=== PATIENT | female | born 1955 | race Caucasian/White ===

== ENCOUNTER 2025-01-05 23:01 | Observation (INO) | payer OTHER, SELFPAY ==
[2025-01-05 23:10] VITALS: BP 141/64; PULSE 73; O2SAT 97
[2025-01-05 23:13] VITALS: BP 141/64; PULSE 73; RESP 20; TEMP 36.7; O2SAT 98; BMI 30.9
--- NOTE | 2025-01-05 23:15 | ED.NAVMDI ---
HPI - Nausea/Vomiting/Diarrhea General Chief complaint: Nausea/Vomiting/Diarrhea Stated complaint: Nausea, Vomiting, Hot Flashes Time Seen by Provider: 01/05/25 23:13 Source: patient, RN notes reviewed and old records reviewed Mode of arrival: Ambulatory Limitations: no limitations History of Present Illness HPI Narrative: 69-year-old female history of GERD, patient presents with complaint of nausea or vomiting but also headache she states they started about the same time. She states it was sort of a gradual onset and not a thunderclap or sudden onset. She states it is not the worst headache of her life but it was fairly intense. She states she was had vomiting since that is when pretty frequent starting about 9:00 this evening. She states she was sitting up in her bed after 1 of these episodes saw some black spots and did pass out for a short appeared of time. Patient states she was does not normally pass out. She denies any chest pain or shortness of breath. She states her headaches actually improving. She denies any abdominal back or flank pain. No loss of bowel or bladder control. Denies any diarrhea, no black or bloody stools. No dysuria urgency or frequency. No new numbness tingling or weakness or extremities. Denies any fevers or chills. No nasal congestion. Patient states she takes omeprazole daily no other daily prescription medications has had prior cholecystectomy. Reports allergy did not naproxen which makes her vomit but states she can take ibuprofen without issue. Denies any tobacco, alcohol or recreational drugs. Does not currently have a primary care physician. Patient also notes she had contact with the individual yesterday who was positive for norovirus. Related Data Allergies Allergy/AdvReac Type Severity Reaction Status Date / Time naproxen Allergy Vomiting Verified 01/05/25 23:18 Review of Systems Review of Systems ROS Unobtainable: All systems reviewed & are unremarkable except as noted in HPI and below Patient History Social History Smoking Status: Never smoker Smoking Status: Never smoker Exam Narrative Exam Narrative: GEN: well nourished, well appearing female, alert and oriented x 3, patient appears to be in my distress. HEENT: Atraumatic, pupils are equal round reactive to light, extraocular movements are intact, no nystagmus, nares are clear, TMs are clear with no fluid, there is no conjunctival pallor. Throat is clear without any exudates, erythema, tonsillar enlargement or uvular deviation, facial droop. No meningeal signs. HEART: Regular rate and rhythm without murmur, clicks, rubs. LUNGS:Lungs clear to auscultation, no wheezes, rales, crackles, chest moves symmetrically ABD:bowel sounds normal, soft, non-tender, no guarding, rebound, rigidity, no masses noted, no hepatosplenomegaly :No CVA tenderness MSCL: Non-tender, no muscle atrophy, muscles strength 5/5 upper and lower extremities, full range of motion, normal gait NEURO:CN 2-12 intact, sensation normal. Initial Vital Signs Initial Vital Signs: Vital Signs Pulse Rate 73 01/05/25 23:10 Blood Pressure 141/64 H 01/05/25 23:10 Pulse Oximetry 97 01/05/25 23:10 Course Orders Ordered: ED Orders 01/05/25 23:20 Complete Blood Count AUTO DIFF Stat Comprehensive Metabolic Panel Stat Lipase Stat Troponin & CK Cardiac Panel Stat Urine Culture Stat Urine Microscopic Stat 01/05/25 23:37 CT angio head and neck Stat CT head/brain wo con Stat XR chest 1V Stat EKG-12 Lead Stat 01/06/25 00:37 US abdomen limited Stat Acetaminophen (Acetaminophen 325 Mg Tablet) 650 mg PO Q6H PRN PRN Reason: Fever/Mild Pain (1-3) Heparin Sodium (Porcine) (Heparin 5,000 Unit/Ml Vial) 5,000 unit SUBCUT BID MAYLIN Hydromorphone HCl (Hydromorphone 0.5 Mg Inj) 0.5 mg IV Q2H PRN PRN Reason: Pain, Severe (7-10) Sodium Chloride (Normal Saline 0.9%) 1,000 mls @ 125 mls/hr IV CONT MAYLIN Naloxone HCl (Naloxone 0.4 Mg/Ml Vial) 0.2 mg IV Q2MIN PRN PRN Reason: Opiate Reversal Ondansetron HCl (Ondansetron 4 Mg/2 Ml Inj) 4 mg IV NOW PRN PRN Reason: Nausea And Vomiting Last Admin: 01/05/25 23:20 Dose: 4 mg Documented By: KATERINA Ondansetron HCl (Ondansetron 4 Mg Odt) 4 mg PO NOW PRN PRN Reason: Nausea And Vomiting Discontinued Medications Sodium Chloride (Normal Saline 0.9%) 1,000 mls @ 1,000 mls/hr IV BOLUS ONE Stop: 01/06/25 00:36 Last Infusion: 01/06/25 00:53 Dose: Infused Documented By: Admin: 01/05/25 23:44 Dose: 1,000 mls/hr Documented By: KATERINA Ondansetron HCl (Ondansetron 4 Mg/2 Ml Inj) 4 mg IV NOW ONE Stop: 01/06/25 01:58 Last Admin: 01/06/25 02:05 Dose: 4 mg Documented By: NITISH Vital Signs Vital signs: Vital Signs - 8 hr 01/05/25 23:10 01/05/25 23:10 01/05/25 23:13 Temperature 98.1 F Pulse Rate 73 73 Respiratory Rate 20 Blood Pressure 141/64 H 141/64 H Pulse Oximetry 97 98 Oxygen Delivery Method Room Air 01/05/25 23:30 01/05/25 23:30 01/06/25 00:03 Temperature Pulse Rate 84 Respiratory Rate Blood Pressure 120/63 128/56 L Pulse Oximetry 95 Oxygen Delivery Method 01/06/25 00:03 01/06/25 00:30 01/06/25 00:30 Temperature Pulse Rate 80 79 Respiratory Rate 22 Blood Pressure 139/63 Pulse Oximetry 97 97 Oxygen Delivery Method 01/06/25 01:00 01/06/25 01:00 01/06/25 01:30 Temperature Pulse Rate 79 80 Respiratory Rate 23 20 Blood Pressure 131/60 Pulse Oximetry 99 99 Oxygen Delivery Method 01/06/25 01:30 01/06/25 02:00 01/06/25 02:01 Temperature Pulse Rate 41 L 43 L Respiratory Rate 14 18 Blood Pressure 123/60 Pulse Oximetry 97 96 Oxygen Delivery Method 01/06/25 02:01 01/06/25 02:30 01/06/25 02:30 Temperature Pulse Rate 75 Respiratory Rate 19 Blood Pressure 98/54 L 132/60 Pulse Oximetry 97 Oxygen Delivery Method Room Air MDM - Nausea/Vomiting/Diarrhea Lab Data 01/05/25 23:20 01/05/25 23:20 Labs: Lab Results 01/05/25 Range/Units 23:20 WBC 13.4 H (4.5-11.0) X10^3/uL RBC 5.09 (4.0-5.2) X10^6/uL Hgb 14.6 (12.0-16.0) g/dL Hct 43.1 (36-46) % MCV 84.6 (80-100) fL MCH 28.8 (26-34) PG MCHC 34.0 (30-36) % RDW 14.7 (11.6-14.8) % Plt Count 270 (150-400) X10^3/uL Neut % (Auto) 79.9 H (50-75) % Lymph % (Auto) 13.3 L (25-40) % [place] % (Auto) 5.3 (3-14) % Eos % (Auto) 1.2 L (2-4) % Baso % (Auto) 0.3 (0-2) % Neut # (Auto) 39523 H (2096-7542) /uL Lymph # (Auto) 1800 (8225-6953) /uL [place] # (Auto) 700 (0-900) /uL Eos # (Auto) 200 (0-450) /uL Baso # (Auto) 0 (0-100) /uL Sodium 136 L (137-145) mmol/L Potassium 4.4 (3.4-5.1) mmol/L Chloride 99 (98-107) mmol/L Carbon Dioxide 28 (22-32) mmol/L BUN 20 H (7-17) mg/dL Creatinine 1.10 H (0.52-1.04) mg/dL Estimated GFR 54 L (>60) mL/min BUN/Creatinine Ratio 18.2 (6-22) Glucose 153 H (70-99) mg/dL Calcium 9.5 (8.4-10.2) mg/dL Total Bilirubin 0.7 (0.2-1.3) mg/dL AST 37 H (14-36) IU/L ALT 34 (<35) IU/L Alkaline Phosphatase 80 (38-126) U/L Total Creatine Kinase 81 (30-135) U/L Troponin I < 0.012 (0.01-0.034) ng/mL Total Protein 8.2 (6.3-8.2) g/dL Albumin 4.5 (3.5-5.0) g/dL Globulin 3.7 (1.7-4.1) g/dL Albumin/Globulin Ratio 1.2 (1.0-2.8) Lipase 5548 H (23-300) U/L Urine RBC 0-1/hpf (0-5/HPF) Urine WBC 0-1/hpf (0-5/HPF) Ur Squamous Epith Cells 0-1 /hpf (0-5/HPF) Urine Bacteria Occasional (0-1) (None) Ur Culture Indicated? Specimen cultured Vol Urine Centrifuged 10ml (spun) Urine Dip Bedside Urine Glucose Negative Bedside Urine Bilirubin - Negative Bedside Urine Ketone - Negative Urine Specific [place] 1.015 Bedside Urine Occult Blood + Bedside Urine pH 6.0 Bedside Urine Protein - Negative Bedside Urine Urobilinogen - Negative Bedside Urine Nitrite - Negative Bedside Urine Leukocytes + 70 Esterase MDM Narrative Medical decision making narrative: 69-year-old female presents with complaint of nausea or vomiting that started about the same time as headache but she was unsure which preceded the other does describe a headache which she describes as severe but not the worse headache of her life. Describes it more as a gradual onset over the day in his actually improving at this time. She has been afebrile. Did not note that she passed out after she had vomited a lot. She also notes she had contact with the individual had Norovirus yesterday. Suspect this maybe norovirus but based on patient's constellation of symptoms head CT CT angio was also included and workup. She was no acute neurologic changes on exam. She feels much better after dose of Zofran here in the department. Labs show white count of 13 hemoglobin of 14 platelets of 270, chemistry shows sodium 136 potassium chloride CO2 were normal BUN 20 creatinine is 1.10, glucose is 153 bilirubin is 0.7 with a AST of 37 ALT of 34 alk-phos 80 lipase is 5548. Troponin less than 0.012 Point of care urine shows blood. Leukocyte esterase. One red cell 1 white cell 1 squamous occasional bacteria sent for culture. CT head noncontrast shows no acute change CT angio no significant intracranial abnormality of the head or neck, consider brain follow up MRI, Right thyroid goiter. Chest x-ray shows no acute change. Right upper quadrant ultrasound increased hepatic echogenicity consistent with a panic steatosis other forms of hepatocellular disease could have similar appearance. No free fluid identified. Intra and extrahepatic bile ducts are nondilated. Patient received Zofran and fluids. Patient is feeling improved currently asymptomatic, denies any pain. No prior history of pancreatitis. Spoke with Dr. Townsend telehospitalist accepts for inpatient. Discharge Plan Departure Patient Disposition: Admitted As Inpatient Clinical Impression: Pancreatitis, Vomiting Referrals: Bill Garcia MD [Primary Care Provider] -
[2025-01-05] MEDS: ONDANSETRON 4 MG/2 ML INJ IV (23:20)
[2025-01-05 23:30] VITALS: BP 120/63; PULSE 84; O2SAT 95
--- NOTE | 2025-01-05 23:37 | DI.RAD.S_ITS ---
PROCEDURE: XR CHEST 1V INDICATIONS: syncope, maher, vomiting TECHNIQUE: One view of the chest was acquired. COMPARISON: None. FINDINGS: Surgical changes and devices: None. Lungs and pleura: Lungs appear clear. No pleural effusions or pneumothorax. Mediastinum: Mediastinal contours appear normal. Heart size is within normal limits. Bones and chest wall: No suspicious bony lesions. Overlying soft tissues appear unremarkable. IMPRESSION: No acute cardiopulmonary abnormality is seen. Dictated by: Ivan Mendez M.D. on 01/06/2025 at 2:15 Approved by: Ivan Mendez M.D. on 01/06/2025 at 2:17
--- NOTE | 2025-01-05 23:37 | DI.CT.S_ITS ---
PROCEDURE: CT ANGIO HEAD AND NECK INDICATIONS: maher, vomiting, syncope TECHNIQUE: After the administration of intravenous contrast, 1 mm thick sections acquired from the aortic arch through the [place]. 3-dimensional rytkefl-xzyuwtxva-ayodbnpfix (MIP) and/or volume rendering reformats were acquired of the central intracranial vasculature and neck separately. For radiation dose reduction, the following was used: automated exposure control, adjustment of mA and/or kV according to patient size. COMPARISON: [facility], CT, CT HEAD/BRAIN WO CON, 01/05/2025, 23:51. FINDINGS: Image quality: Diagnostic. BRAIN: CSF spaces: Ventricles are normal in size and shape. Basal cisterns are patent. No extra-axial fluid collections. Brain: No significant abnormality of the brain can be seen. Skull and face: Calvarium and facial bones appear intact, without suspicious lesions. Orbits appear normal. Sinuses: Sinuses and mastoids are clear. HEAD CT ANGIOGRAPHY: Anterior circulation: Intracranial internal carotid arteries are normal in size and flow. The flow within the paired anterior cerebral arteries is normal and symmetric. The flow within the middle cerebral arteries is normal and symmetric. The anterior communicating artery is seen. No aneurysms are seen. Posterior circulation: Visualized portions of the vertebral arteries demonstrate normal caliber, and join to form a normal appearing basilar artery. Flow within the posterior cerebral arteries is normal and symmetric. No aneurysms are seen. NECK CT ANGIOGRAPHY: Carotid system: The great vessels demonstrate a conventional anatomy as they arise from the aortic arch. The origins of the common carotid arteries appear patent. The common carotid arteries demonstrate normal caliber and courses. The bifurcation regions are both widely patent. Mild calcified plaque at the right carotid bulb. Less than 50% stenosis bilaterally. The internal carotid arteries demonstrate normal calibers and courses. Posterior circulation: The origins of the vertebral arteries both appear widely patent. The more superior extracranial portions of both vertebral arteries also demonstrate normal courses and calibers. They join to form a normal appearing basilar artery. Soft tissues: Visualized neck soft tissues demonstrate no suspicious abnormalities. Right thyroid goiter. Left thyroid calcification. Bones: No suspicious bony lesions. Ihrw-mu-[id number] degenerative changes. Visualized cervical spine appears normally aligned. IMPRESSION: No significant intracranial arterial abnormality is seen. No significant abnormality is seen within the arteries of the neck. Consider follow-up brain MRI. Right thyroid goiter. Any quantitative measurements of stenosis were performed using NASCET criteria. Dictated by: Ivan Mendez M.D. on 01/06/2025 at 1:47 Approved by: Ivan Mendez M.D. on 01/06/2025 at 1:53
--- NOTE | 2025-01-05 23:37 | DI.CT.S_ITS ---
PROCEDURE: CT HEAD/BRAIN WO CON INDICATIONS: maher/vomiting/syncope, also had recent norovirus exposure TECHNIQUE: Noncontrast 4.5 mm thick angled axial sections acquired from the foramen magnum to the vertex, with coronal and sagittal reformats. For radiation dose reduction, the following was used: automated exposure control, adjustment of mA and/or kV according to patient size. COMPARISON: None. FINDINGS: Image quality: Diagnostic. CSF spaces: Basal cisterns are patent. No extra-axial fluid collections. Ventricles are normal in size and shape. Brain: No midline shift. No intracranial mass effect or hemorrhage. [place]-white matter interface is normal. Skull and face: Calvarium and visualized facial bones are intact, without suspicious lesions. Sinuses: Visualized sinuses and mastoids are clear. IMPRESSION: No acute intracranial pathology. Dictated by: Ivan Mendez M.D. on 01/06/2025 at 1:46 Approved by: Ivan Mendez M.D. on 01/06/2025 at 1:47
[2025-01-05 23:40] LABS: Bacteria Urine Occasional (0-1); Culture Indicated Urine Specimen Cultured; RBC Urine 0-1/HPF (0-5/HPF); Squamous Epithelial Cell Urine 0-1 /HPF (0-5/HPF); Urine Volume 10mL (spun); WBC Urine 0-1/HPF (0-5/HPF)
[2025-01-05 23:43] LABS: Add Manual Diff / Slide Review NO; Basophils Absolute Auto 0 /uL (0-100); Basophils Percent Auto 0.3 % (0-2); Eosinophils Absolute Auto 200 /uL (0-450); Eosinophils Percent Auto 1.2 % (2-4); Hematocrit 43.1 % (36-46); Hemoglobin 14.6 g/dL (12.0-16.0); Lymphocytes Absolute Auto 1800 /uL (1100-4500); Lymphocytes Percent Auto 13.3 % (25-40); Mean Corpuscular Hemoglobin 28.8 PG (26-34); Mean Corpuscular Volume 84.6 fL (80-100); Monocytes Absolute Auto 700 /uL (0-900); Monocytes Percent Auto 5.3 % (3-14); Neutrophils Absolute Auto 10700 /uL (1500-7000); Neutrophils Percent Auto 79.9 % (50-75); Platelet Count 270 X10^3/uL (150-400); Red Blood Cell Count 5.09 X10^6/uL (4.0-5.2); Red Cell Distribution Width 14.7 % (11.6-14.8); White Blood Cell Count 13.4 X10^3/uL (4.5-11.0)
[2025-01-05] MEDS: SODIUM CHLORIDE 0.9% 1,000 ML 1000 ML IV (23:44)
--- NOTE | 2025-01-05 23:52 | PC.NURSE ---
Pt to imaging via ED stretcher with special procedure technologist
[2025-01-06] VITALS (9 sets, daily range): BP systolic 98–139; BP diastolic 54–69; PULSE 41–87; RESP 14–23; TEMP 36.2–36.4; O2SAT 95–100; BMI 31.8
[2025-01-06 00:03] LABS: Alanine Aminotransferase 34 IU/L (<35); Albumin 4.5 g/dL (3.5-5.0); Albumin Globulin Ratio 1.2 (1.0-2.8); Alkaline Phosphatase 80 U/L (38-126); Aspartate Aminotransferase 37 IU/L (14-36); BUN Creatinine Ratio 18.2 (6-22); Bilirubin Total 0.7 mg/dL (0.2-1.3); Blood Urea Nitrogen 20 mg/dL (7-17); Calcium 9.5 mg/dL (8.4-10.2); Carbon Dioxide 28 mmol/L (22-32); Chloride 99 mmol/L (98-107); Creatine Kinase 81 U/L (30-135); Estimated Glomerular Filt Rate 54 mL/min (>60); Globulin 3.7 g/dL (1.7-4.1); Glucose 153 mg/dL (70-99); HEMOLYSIS < 15 (0-50); Potassium 4.4 mmol/L (3.4-5.1); Sodium 136 mmol/L (137-145); Total Protein 8.2 g/dL (6.3-8.2)
[2025-01-06 00:14] LABS: Troponin I < 0.012 ng/mL (0.01-0.034)
[2025-01-06 00:29] LABS: Lipase 5548 U/L (23-300)
--- NOTE | 2025-01-06 00:37 | DI.US.S_ITS ---
PROCEDURE: US ABDOMEN LIMITED INDICATIONS: RUQ, pancreatitis TECHNIQUE: Real-time scanning was performed of the abdominal and retroperitoneal organs, with image documentation. COMPARISON: None. FINDINGS: Liver: Measures 14.6 cm. Increased in echogenicity. Decreased sonographic penetration. Gallbladder: Absent. Biliary ducts: Intrahepatic bile ducts are non-dilated. Extrahepatic bile duct caliber measures 5 mm. Normal is 6-7 mm or less in diameter, or 10 mm or less post-cholecystectomy. Pancreas: Visualized portions of the pancreas are sonographically normal. Miscellaneous: No free abdominal fluid. IMPRESSION: 1. Increased hepatic echogenicity most consistent with hepatic steatosis. Other forms of hepatocellular disease could have similar appearance. 2. No free fluid is identified. -Recommend correlation with serum lipase. If clinically indicated CT abdomen pelvis with IV contrast could be considered for further evaluation. Dictated by: Ivan Mendez M.D. on 01/06/2025 at 3:00 Approved by: Ivan Mendez M.D. on 01/06/2025 at 3:02
[2025-01-06] MEDS: ONDANSETRON 4 MG/2 ML INJ IV ×2 (02:05→08:31)
[2025-01-06] MEDS: SODIUM CHLORIDE 0.9% 1,000 ML 125 ML IV (03:00)
--- NOTE | 2025-01-06 05:11 | PM.HP.1 ---
History of Present Illness History of Present Illness Chief complaint: Nausea, Vomiting, Hot Flashes Narrative: 69-year-old female with past medical history of GERD, cholecystectomy, and on hormonal replacement therapy with estrogen presents with complaint of headache with nausea and vomiting. Per the patient's report, the patient started to have nausea and vomiting that started this evening. The patient states that her headache is gradual in onset but is moderate to severe. The patient however denies any vision changes, slurred speech, facial drooping or focal weakness. The patient also have nausea and vomiting but denies any fever, chills, chest pain or shortness of breath. Patient denies any history of alcohol abuse. In our emergency room, the patient was hemodynamically stable. Labs shows a WBC of 13 BUN of 20 creatinine 1.1 glucose of 153 lipase of 5548. Bilirubin normal AST and ALT in the 30s. Troponin less than 0.12. CT of the head shows no acute finding. Chest x-ray negative UA is negative. Right upper quadrant abdominal ultrasound shows no signs of dilated bile duct or gallstone. Due to concern of acute pancreatitis our ER physician requested admission for IV fluid and p.o. and pain control. IV antiemetics. [facility] Social History household members: spouse Smoking Status: Never smoker alcohol intake: never Meds Home Medications and Allergies Home Medications Medication Instructions Recorded Confirmed Type esterified 1 tab PO DAILY 01/06/25 01/06/25 History estrogens-methyltestosterone 1.25 mg-2.5 mg tablet omeprazole 20 mg capsule,delayed 20 mg PO DAILY 01/06/25 01/06/25 History release Allergies Allergy/AdvReac Type Severity Reaction Status Date / Time naproxen Allergy Vomiting Verified 01/05/25 23:18 Review of Systems Review of Systems ROS: Yes All systems reviewed with the patient and are negative except as otherwise documented Exam Vital Signs (past 8 hours): - 01/05/25 23:10 01/05/25 23:10 01/05/25 23:13 Temperature 98.1 F Pulse Rate 73 73 Respiratory Rate 20 Blood Pressure 141/64 H 141/64 H Pulse Oximetry 97 98 Oxygen Delivery Method Room Air Oxygen Flow Rate 01/05/25 23:30 01/05/25 23:30 01/06/25 00:03 Temperature Pulse Rate 84 Respiratory Rate Blood Pressure 120/63 128/56 L Pulse Oximetry 95 Oxygen Delivery Method Oxygen Flow Rate 01/06/25 00:03 01/06/25 00:30 01/06/25 00:30 Temperature Pulse Rate 80 79 Respiratory Rate 22 Blood Pressure 139/63 Pulse Oximetry 97 97 Oxygen Delivery Method Oxygen Flow Rate 01/06/25 01:00 01/06/25 01:00 01/06/25 01:30 Temperature Pulse Rate 79 80 Respiratory Rate 23 20 Blood Pressure 131/60 Pulse Oximetry 99 99 Oxygen Delivery Method Oxygen Flow Rate 01/06/25 01:30 01/06/25 02:00 01/06/25 02:01 Temperature Pulse Rate 41 L 43 L Respiratory Rate 14 18 Blood Pressure 123/60 Pulse Oximetry 97 96 Oxygen Delivery Method Oxygen Flow Rate 01/06/25 02:01 01/06/25 02:30 01/06/25 02:30 Temperature Pulse Rate 75 Respiratory Rate 19 Blood Pressure 98/54 L 132/60 Pulse Oximetry 97 Oxygen Delivery Method Room Air Oxygen Flow Rate 01/06/25 02:50 Temperature 97.1 F L Pulse Rate 71 Respiratory Rate 19 Blood Pressure 132/69 Pulse Oximetry 100 Oxygen Delivery Method Oxygen Flow Rate 0 Oxygen Delivery Method Room Air Oxygen Flow Rate 0 Narrative Exam Narrative: Physical Exam: GENERAL: The patient is not in any acute distressed. Awake and alert. HEENT: Nonicteric sclerae, PERRLA, EOMI. Oropharynx clear. Moist mucous membranes. Conjunctivae appear well perfused. HEART: Regular rate and rhythm without murmurs. No lower extremities edema. LUNGS: Clear to auscultation bilaterally. No wheezing, crackles or rhonchi ABDOMEN: Soft, positive bowel sounds, nontender. SKIN: No rash, no excessive bruising, petechiae, or purpura. NEUROLOGIC: AxO x 3. Cranial nerves II-XII intact without motor/sensory deficit. Objective Labs 01/05/25 23:20 01/05/25 23:20 Labs: Laboratory Results - last 24 hr 01/05/25 23:20 WBC 13.4 H RBC 5.09 Hgb 14.6 Hct 43.1 MCV 84.6 MCH 28.8 MCHC 34.0 RDW 14.7 Plt Count 270 Neut % (Auto) 79.9 H Lymph % (Auto) 13.3 L [place] % (Auto) 5.3 Eos % (Auto) 1.2 L Baso % (Auto) 0.3 Neut # (Auto) 35922 H Lymph # (Auto) 1800 [place] # (Auto) 700 Eos # (Auto) 200 Baso # (Auto) 0 Sodium 136 L Potassium 4.4 Chloride 99 Carbon Dioxide 28 BUN 20 H Creatinine 1.10 H Estimated GFR 54 L BUN/Creatinine Ratio 18.2 Glucose 153 H Calcium 9.5 Total Bilirubin 0.7 AST 37 H ALT 34 Alkaline Phosphatase 80 Total Creatine Kinase 81 Troponin I < 0.012 Total Protein 8.2 Albumin 4.5 Globulin 3.7 Albumin/Globulin Ratio 1.2 Lipase 5548 H Urine RBC 0-1/hpf Urine WBC 0-1/hpf Ur Squamous Epith Cells 0-1 /hpf Urine Bacteria Occasional (0-1) Ur Culture Indicated? Specimen cultured Vol Urine Centrifuged 10ml (spun) Assessment & Plan Assessment & Plan narrative: Acute pancreatitis. Admit the patient to medical inpatient. NPO. IV fluid. IV antiemetics and pain control. Of note patient denies any history of alcohol use. Patient has a history of cholecystectomy. Right upper quadrant abdominal ultrasound shows no bile duct dilatation. Bilirubin normal with AST ALT in the 30s. Leukocytosis. Mild. No signs of infection. Chest x-ray and UA negative. Monitor for now. GERD resume PPI. On estrogen replacement therapy. Wants to pancreatitis improved consider resuming home statin hormone. DVT prophylaxis heparin subcu. CODE STATUS full code. Disposition likely home in 2 days. - As the provider of this telehealth evaluation, requested by the patient's evaluating physician, I attest that I introduced myself to the patient, provided my credentials and determined that telemedicine via a real-time, 2 way interactive audio and video platform is an appropriate and effective means of providing this service. - I reviewed the patient's chart and had a discussion with the member of the patient's treatment team. - The patient and I mutually agreed with continuation of this evaluation via telemedicine. The patient consented for the telemedicine evaluation. - This virtual encounter was taken place from [place] by Dr. Chevy Townsend. The patient was evaluated at [facility]. The encounter was approximately 35 minutes. The nurse was present during the entire time of the encounter and was able to move the stethoscope in appropriate directions. Time-Based Coding :: [TOTAL MINUTES] spent with patient and on the chart (including review of chart, obtaining history, exam, reviewing outside data, placing orders, documenting exam and treatment plan, and counseling patient) on [DATE]. Quality VTE Deep Vein Thrombosis/Pulmonary Embolism Present on Admission: No
[2025-01-06] MEDS: METOCLOPRAMIDE 10 MG/2 ML INJ IV (09:21)
--- NOTE | 2025-01-06 13:11 | CM.DANOTE ---
Initial DCP Assessment Note Pt is a 69 yo female, arrives w/complaint of headache with nausea and vomiting. Patient admitted OBS for management of acute pancreatitis-IV fluid and p.o. pain control. IV antiemetics. PCP: Bill Garcia Payer: Marcela BUENO Reviewed chart, pt discussed in multidisciplinary rounds this morning. Patient is discharged home today, tolerating a diet and eager to return home. Patient lives independently in an RV w/spouse. Patient is at her functional and cognitive baseline. No barriers identified at this time to patient's safe discharge home w/ close outpatient f/u recommended. CM team will plan to follow clinical course closely in case any DC needs or concerns arise. PHILLY Arzate Discharge Planning/Care Management CM Discharge Assessment Start: 01/06/25 03:09 Freq: Status: Active Protocol: Document 01/06/25 13:04 SHARON (Rec: 01/06/25 13:11 SHARON [id number]) Discharge Planning Assessment Assigned Human Resources Assistant Manager PHILLY Archer DPOA/Assigned Designee Name eleuterio Cunningham [phone] Advance Directives? No History Provided By Patient,Medical Record Has Patient been admitted in last 30 No days? Prior Living Arrangements RV Household Members spouse Type of transporation used prior to Drives own vehicle admit Independent with ADL's Yes Is patient alert and oriented? Yes Barriers to Discharge No Discharge Plan Home Transportation Arrangement Spouse Referrals Initiated None needed
--- NOTE | 2025-01-06 13:30 | PC.NURSE ---
Patient A&OX4, VSS, afebrile. She c/o of nausea this a.m. and reports prn medication effective, and no further emesis this a.m. She is eager to discharge home and she is ordered a low fat low residue diet for lunch. She is able to tolerate this well and is cleared for discharge home with prescription of zofran. She acknowledges discharge recommendations and plans to obtain a PCP in the near future. She is escorted by RN via w/ch to private vehicle with .
--- NOTE | 2025-01-07 18:53 | P.DS_ITS ---
History of Present Illness History of Present Illness Date Patient Seen: 01/06/25 Time Patient Seen: 14:00 Chief complaint: Nausea, Vomiting, Hot Flashes Narrative: Per admitting provider, 69-year-old female with past medical history of GERD, cholecystectomy, and on hormonal replacement therapy with estrogen presents with complaint of headache with nausea and vomiting. Per the patient's report, the patient started to have nausea and vomiting that started this evening. The patient states that her headache is gradual in onset but is moderate to severe. The patient however denies any vision changes, slurred speech, facial drooping or focal weakness. The patient also have nausea and vomiting but denies any fever, chills, chest pain or shortness of breath. Patient denies any history of alcohol abuse. In our emergency room, the patient was hemodynamically stable. Labs shows a WBC of 13 BUN of 20 creatinine 1.1 glucose of 153 lipase of 5548. Bilirubin normal AST and ALT in the 30s. Troponin less than 0.12. CT of the head shows no acute finding. Chest x-ray negative UA is negative. Right upper quadrant abdominal ultrasound shows no signs of dilated bile duct or gallstone. Due to concern of acute pancreatitis our ER physician requested admission for IV fluid and p.o. and pain control. IV antiemetics. Discharge Providers Provider Date of admission: 01/06/25 03:05 Discharge Date: 01/07/25 Primary care physician: Bill Garcia MD Discharge provider: Mu Brenner DO Summary Hospital Course Discharge Diagnosis: Intractable nausea and vomiting, present on admission, improved. Elevated Lipase, POA. Leukocytosis, POA GERD On estrogen replacement therapy, chronic. Hospital Course: This is a 69-year-old female with a past medical history of prior cholecystectomy, GERD, and chronic estrogen replacement therapy who was admitted with nausea, vomiting, headache and an elevated lipase concerning for possible pancreatitis. She did not report significant or typical abdominal pain, and only an abdominal ultrasound was performed which did not show any evidence of inflammation in the pancreas. Patient was initially NPO with IV fluids for possible pancreatitis, however the patient felt very well shortly after admission and her diet was quickly advanced. She was able to be discharged later that day, tolerating a diet without significant abdominal pain. She was subsequently discharge. Differentials for her presentation include an enteritis or atypical migraine. Her elevated lipase could be investigated further as an outpatient, but she currently did not meet diagnostic criteria for acute pancreatitis at this time. Recommend follow-up with her primary care provider as previously scheduled, unless symptoms recur at which point she can follow up as an outpatient as needed for further evaluation. Time Spent with Patient Time spent: Greater than 30 minutes Exam Vital Signs (past 8 hours): Oxygen Delivery Method Room Air Oxygen Flow Rate 0 Narrative Exam Narrative: Physical Exam: GENERAL: The patient is not in any acute distressed. Awake and alert. HEENT: Nonicteric sclerae, PERRLA, EOMI. Oropharynx clear. Moist mucous membranes. Conjunctivae appear well perfused. HEART: Regular rate and rhythm without murmurs. No lower extremities edema. LUNGS: Clear to auscultation bilaterally. No wheezing, crackles or rhonchi ABDOMEN: Soft, positive bowel sounds, nontender. SKIN: No rash, no excessive bruising, petechiae, or purpura. NEUROLOGIC: AxO x 3. Cranial nerves II-XII intact without motor/sensory deficit. Objective Labs 01/05/25 23:20 01/05/25 23:20 [facility] Social History household members: spouse Smoking Status: Never smoker alcohol intake: never Discharge Plan Discharge Plan Patient Disposition: Home Provider Discharge Comment: You were admitted to the hospital with nausea and vomiting, your lipase was elevated but it is not entirely clear if this was pancreatitis or not. There are rare reports of cases of pancreatitis due to omeprazole, consider switching back to famotidine. Otherwise continue symptom relief and advance diet at home as tolerated. Discharge orders & Medications Prescriptions: New ondansetron 4 mg tablet,disintegrating 4 mg PO Q8H PRN (Reason: nausea and vomiting) 7 Days Qty: 20 0RF Continued estrogens-methyltestosterone 1.25-2.5 mg tablet 1 tab PO DAILY Discontinued omeprazole 20 mg Capsule,Delayed Release(Dr/Ec) 20 mg PO DAILY Follow up/Referrals: Bill Garcia MD [Primary Care Provider] - Diet/Activity/Treatments Diet: Diet as Tolerated and Regular Activity: As tolerated, no restrictions. Skin/Wound/Dressing Care Report to your healthcare provider any signs of infection, such as:: chills, fever Visit Report/Discharge Packet Stand Alone Forms: Patient Portal/API, Stroke Signs & Symptoms Discharge Data Primary Care Provider: Bill Garcia Attending Provider: Chevy Townsend Admit Date/Time: 01/06/25 03:05 Quality VTE Deep Vein Thrombosis/Pulmonary Embolism Present on Admission: No
== END 2025-01-06 13:50 | disposition home or self-care (01) ==
LOC: ED 01-06 03:06 → AC 01-06 03:54
PROVIDERS: Admitting Provider Internal Medicine; Emergency Provider Emergency Medicine; PCP Family Medicine Geriatric Medicine; Referring Provider Internal Medicine; Visit Provider Internal Medicine
DX: R11.2 Nausea with vomiting, unspecified (principal); R51.9 Headache, unspecified; K21.9 Gastro-esophageal reflux disease without esophagitis; R74.8 Abnormal levels of other serum enzymes; D72.829 Elevated white blood cell count, unspecified; Z90.49 Acquired absence of other specified parts of digestive tract; Z79.890 Hormone replacement therapy
CPT/HCPCS: 36415; 70450; 70496; 70498; 71045; 76705; 80053; 81003; 81015; 82550; 83690; 84484; 85025; 87086; 96361; 96374; 96375; 96376; 99284; G0378; J2405; J2765; Q9967